=== PATIENT | male | born 1985 | race Caucasian/White ===

== ENCOUNTER 2018-08-23 22:09 | Emergency (ER) | payer OTHER ==
[~2018-08-23] VITALS: Ht 172.7 cm; Wt 78.9 kg
[~2018-08-23 22:09] MED LIST: CLEOCIN HCL300 MG PO; IBUPROFEN200 M2 PO
[2018-08-23 22:22] VITALS: BP 124/91
[2018-08-23] MEDS ORDERED: BACTRIM DS TAB1 EACH PO (23:23)
== END 2018-08-23 23:40 | disposition home or self-care (01) ==
LOC: ER 22:09
DX: H60.02 Abscess of left external ear (principal); F17.210 Nicotine dependence, cigarettes, uncomplicated

== ENCOUNTER 2019-12-13 10:46 | Emergency (ER) | payer OTHER ==
[~2019-12-13] VITALS: Ht 172.7 cm; Wt 95.3 kg
[~2019-12-13 10:46] MED LIST changes: +BACTRIM DS TAB1 EACH PO
[2019-12-13] MEDS ORDERED: BACTRIM DS TAB1 EACH PO (11:33)
[2019-12-13 11:56] VITALS: BP 151/96
== END 2019-12-13 11:56 | disposition home or self-care (01) ==
LOC: ER 10:46
DX: T63.301A Toxic effect of unspecified spider venom, accidental (unintentional), initial encounter (principal); L02.11 Cutaneous abscess of neck; L53.0 Toxic erythema; F17.210 Nicotine dependence, cigarettes, uncomplicated; Z86.14 Personal history of Methicillin resistant Staphylococcus aureus infection; Z79.2 Long term (current) use of antibiotics; Z79.899 Other long term (current) drug therapy; Y92.89 Other specified places as the place of occurrence of the external cause

== ENCOUNTER → 2020-11-13 | Day surgery (SDC) | payer BC ==
[~2020-11-13] VITALS: Ht 172.7 cm; Wt 94.3 kg
[~2020-11-13] MED LIST changes: +GABAPENTIN 100100 MG PO; +HYDROCODON-ACE1 EAC7 PO; +MULTI VITAMIN1 EACH PO; +RISPERDAL 1 MG T1 MG PO; +VISTARIL50 MG PO
--- NOTE | ~2020-11-13 | O ---
[facility] [address] OPERATIVE REPORT Name: TIA MAN Room #: REG [facility].#: [id number] Admission: 11/13/20 Attend Phys: Jon Dowell MD Discharge: Date of : 89 Report #: [id number] THIS REPORT FOR: cc: KARIME - Pina family physician/PCP KARIME - No family physician/PCP Jon Dowell MD ~ DOC #: [id number] cc: MD Jon Hilario MD DATE OF SERVICE: 11/13/2020 PREOPERATIVE DIAGNOSIS: Left inguinal hernia. POSTOPERATIVE DIAGNOSIS: Left inguinal hernia with a left cord lipoma. PROCEDURE: Left inguinal hernia repair with Prolene hernia system mesh and excision of a left cord lipoma. SURGEON: Jon Dowell MD ANESTHESIA: Local IV sedation. DESCRIPTION OF PROCEDURE: The patient was brought to the operating room and placed on the operating table in the supine position. Sequential compression devices were in place for DVT prophylaxis. There was no indication for preoperative antibiotics. The patient underwent IV sedation and the left inguinal area was prepped and draped in a sterile fashion. It was then infiltrated with 0.5% Marcaine 1% Xylocaine with epinephrine. An inguinal incision was performed using #10 scalpel blade. Hemostasis obtained using electrocautery. Dissection was carried down through the subcutaneous tissue of the external oblique fascia using the electrocautery. A large direct inguinal hernia defect was identified with a very widened ectatic dilated external ring. The external oblique fascia was then opened using the Metzenbaum scissors and the ilioinguinal nerve was identified, dissected free, injected with local mixture and preserved. Cord was then elevated up, dissected free and held into place with a Esko drain. Cremasteric muscle fibers were then split in the direction of their fibers using clamp and electrocautery. A cord lipoma was identified, dissected free, clamped, excised and tied with a 2-0 chromic tie. A large direct inguinal hernia defect was identified, dissected free and then opened just above the level of the floor. The hernia sac was reduced back through the floor into the preperitoneal space and the preperitoneal space was then developed using the blunt dissection. An extended Prolene hernia system mesh was then inserted through the floor and the underlay patch was then deployed into the preperitoneal space. The connector was left in the floor and the floor was then tightened over the underlay patch using a running 2-0 Prolene [facility] [address] [place] [address] OPERATIVE REPORT Name: TIA MAN Suleimna CRYSTAL Room #: REG [facility]#: [id number] Admission: 11/13/20 Attend Phys: Jon Dowell MD Discharge: Date of : 89 Report #: [id number] 2-layer Shouldice repair. The overlay patch was then deployed into the inguinal canal and the overlay patch was secured to the pubic tubercle using the running 2-0 Prolene suture. The mesh was then secured superiorly at the connector using simple interrupted 2-0 Vicryl sutures. The mesh was split and wrapped around the cord, secured to the inguinal ligament with simple interrupted 2-0 Vicryl suture. The cord and ilioinguinal nerve were then returned to the canal intact. The external oblique fascia was then closed using a running 2-0 Vicryl suture. Micheline's fascia was then reapproximated using 3 simple interrupted 2-0 chromic sutures and the skin then closed with a running 4-0 subcuticular Vicryl stitch. The wound was then dressed with Mastisol, 0.5 inch Steri-Strips cut in half, Telfa, 4 x 4 gauze, sponge, and tape. The patient was then awakened from the IV sedation and taken to the recovery room awake, alert and in good condition. Estimated blood loss was approximately 10 mL and the patient tolerated the procedure well. All sponge, lap and instrument counts were correct x2. MD HUNTER Plata/FRANCO By: 1346 [id number] Jon Dowell MD /nt
[2020-11-13 12:28] VITALS: BP 174/98
--- NOTE | 2020-11-17 19:07 | PATH ---
[facility] [address] [place] [address] PATHOLOGY RPT PROCEDURE Name: TIA MAN Room #: REG [facility] M.R.#: [id number] Admission: 11/13/20 Date of : 89 Discharge: Report #: [id number] Path Case #: [id number] [facility] Accession Number: [id number] . 01 Material submitted: . inguinal area - LEFT INGUINAL CORD LIPOMA. Modifiers: left . 01 Clinical history: . HERNIA REPIAR,INGUINAL UNILATERAL LEFT INGUINAL HERNIA DIRECT LEFT INGUINAL HERNIA . 02 Diagnosis: Mature adipose tissue, left inguinal cord lipoma, excision: - Compatible with a lipoma. (IUV:pit; 11/17/2020) . QTP 11/17/2020 1342 Local . 02 Electronically signed: . Krissy Caraballo MD, Pathologist NPI- [id number] . 01 Gross description: . Fixative: Formalin Labeled: Left inguinal cord lipoma Specimen received: Intact yellow-lawson lobulated soft tissue mass Dimensions: 6.5 x 1.4 x 1.0 cm External surface: Yellow-lawson and smooth, encapsulated The external surface is inked black. Cut surface: Yellow-lawson and homogeneous . Tv Host sections are submitted in A1-A2. ([facility]; 11/14/2020) [facility] 11/14/2020 1429 Local . 02 Pathologist provided ICD-10: K40.90 . 02 CPT . 208671 Specimen Comment: A courtesy copy of this report has been sent to [phone] Specimen Comment: Report sent to Specimen Comment: Report sent to Performed at: [address] [id number] MD Filiberto Gregory MD Phone: [phone] [address] [address] PATHOLOGY RPT PROCEDURE Name: MANTIA L [id number] Admission: 11/13/20 Date of : 89 Discharge: Report #: [id number] Path Case #: [id number] Performed at: [address] [id number] MD Krissy Caraballo MD Phone: [phone]
== END | disposition home or self-care (01) ==
LOC: OR 06:09
PROVIDERS: ATTEND Surgery
DX: K40.90 Unilateral inguinal hernia, without obstruction or gangrene, not specified as recurrent (principal); D17.6 Benign lipomatous neoplasm of spermatic cord; F17.210 Nicotine dependence, cigarettes, uncomplicated; J45.909 Unspecified asthma, uncomplicated; Z98.890 Other specified postprocedural states; Z79.899 Other long term (current) drug therapy
CPT/HCPCS: 50010; 50101; 50386; 50403; 56524; 56525; 56526; 56528; 58646; 62110; 62850; 70005